=== PATIENT | male | born 1985 ===

== ENCOUNTER 2017-11-16 17:52 | Emergency (ER) | payer SELFPAY ==
[2017-11-16] MEDS ORDERED: Ondansetron 4 MG Tab.DIS PO ONE (18:41)
[2017-11-16] MEDS ORDERED: Ketorolac 60 MG/2 ML SDV IM ONE (18:41)
[2017-11-16] MEDS ORDERED: LORazepam 2 MG/ML MDV IM ONE (18:41)
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
[2017-11-16] MEDS ORDERED: Haloperidol Lactate 5 MG/ML SDV IM ONE ×2 (22:27→22:56)
[2017-11-16] MEDS ORDERED: LORazepam 2 MG/ML MDV IM PRN (22:56)
[2017-11-16] MEDS ORDERED: diphenhydrAMINE 50 MG/ML SDV IM ONE (22:56)
[2017-11-17] MEDS ORDERED: Haloperidol 5 MG Tab PO ONE (06:23)
== END 2017-11-17 07:40 ==
LOC: JP.ED 17:52
DX: F19.939 Other psychoactive substance use, unspecified with withdrawal, unspecified (principal)
CPT/HCPCS: 36415; 80053; 80074; 80305; 81001; 83690; 85025; 87449; 87491; 87591; 96372; 99285; A9270; G0480; J1200; J1630; J1885; J2060